=== PATIENT | female | born 1945 | race Caucasian/White ===

== ENCOUNTER 2019-07-01 12:17 | Day surgery (SDC) | payer MEDICARE ==
[~2019-07-01 12:17] MED LIST: CITALOPRAM10 M1 PO; DONEPEZIL5 MG PO; MEMANTINE HCL10 MG PO
[2019-07-01 15:13] VITALS: BP 120/68
== END 2019-07-01 15:10 | disposition home or self-care (01) ==
LOC: ENDO 12:17 → ORM 15:30 → ENDO 15:50
PROVIDERS: ATTEND Internal Medicine Gastroenterology
PROC: 0D758ZZ Dilation of Esophagus, Via Natural or Artificial Opening Endoscopic (ICD-10-PCS; principal; 2019-07-01)
PROC: 0DB78ZX Excision of Stomach, Pylorus, Via Natural or Artificial Opening Endoscopic, Diagnostic (ICD-10-PCS; 2019-07-01)
DX: K22.2 Esophageal obstruction (principal); K29.50 Unspecified chronic gastritis without bleeding; K29.80 Duodenitis without bleeding; K25.9 Gastric ulcer, unspecified as acute or chronic, without hemorrhage or perforation; K44.9 Diaphragmatic hernia without obstruction or gangrene